=== PATIENT | female | born 1940 ===

== ENCOUNTER 2025-09-11 09:53 | Outpatient (AMB) | payer OTHER, SELFPAY ==
--- NOTE | 2025-09-11 09:56 | A.PHYSOV_ITS ---
Vital Signs 09/11/25 09:59 Height 5 ft 2 in Weight 155 lb BMI 28.3 Pulse 72 Intake Visit Reasons: Lumbar Interlaminar Epidural Injection L5-S1 Intake Note: Patient is a 85 year old female in office today for a Lumbar Interlaminar Epidural Injection L5-S1. Pick Up Required: Yes Pick Up Language: Medical Education Manager Services: Pick Up Offered & Declined Allergies dulaglutide (From Trulicity) Allergy (Unknown, Verified 09/11/25 09:55) Unknown Penicillins Allergy (Unknown, Verified 09/11/25 09:55) Unknown [facility] Medical History (Updated 09/11/25 @ 10:05 by Kuldip Pete DO) Lumbar radiculitis Surgical History History of cholecystectomy H/O: hysterectomy Social History Alcohol intake: current Alcohol intake frequency: does not drink Patient Tobacco Use Status: Never used Tobacco Current occupational status: retired Physical Exam Vital Signs: Last Vital Signs Pulse 72 09/11/25 09:59 BMI result Body Mass Index 28.3 Office Procedures Procedure Details: Procedure performed: L5-S1 lumbar epidural steroid injection Preop diagnosis: Lumbar radiculitis Postop diagnosis: The same Anesthesia: Local After informed consent was obtained patient was brought into the procedure room and placed in the prone position on the procedure table. Skin over the lumbar sacral area was prepped and draped in usual sterile manner. L5-S1 interlaminar space was visualized utilizing fluoroscopy. After skin was anesthetized with 1% lidocaine solution, 3.5 in 20 gauge Toughy needle was introduced percutaneously and advanced toward the epidural space at the indicated level. Loss of resistance technique was utilized. Needle placement was verified utilizing 3 cc of Omnipaque contrast solution. Excellent epidural spread was visualized without evidence of vascular uptake. Total volume of 8 cc containing 2 cc of 1% lidocaine, 40 mg of triamcinolone and normal saline solution were injected after negative aspiration for blood and cerebrospinal fluid. Radiation exposure was documented in the chart. Lumbar Interlaminar Epidural 20456- use with FL Gd order: Lumbar Interlaminar Epidural Steroid Injection 39051 Procedure code (CPT) selection complete Office Meds Kenalog 40 mg/mL suspension for injection Performing Provider: Kuldip ePte DO Performing Location: [facility] Administered by: Kuldip Pete DO on 09/11/25 10:06 Dose Route Admin Location Dispensed Lot Number Expiration Date [facility] [employer] 40 mg epidural 1 mL [address]-6 [employer] Total Dispensed Waste 1 mL 0 % lidocaine (PF) 10 mg/mL (1 %) injection solution Performing Provider: Kuldip Pete DO Performing Location: [facility] Administered by: Kuldip Pete DO on 09/11/25 10:06 Dose Route Admin Location Dispensed Lot Number Expiration Date [facility] [employer] 50 mg epidural 5 mL 24089-303-23 [employer]DA [employer]AR Total Dispensed Waste 5 mL 0 % Omnipaque 300 300 mg iodine/mL intravenous solution Performing Provider: Kuldip Pete DO Performing Location: [facility] Administered by: Kuldip Pete DO on 09/11/25 10:06 Dose Route Admin Location Dispensed Lot Number Expiration Date [facility] [employer] Professor 3 mL epidural 10 mL [id number] [employer] [facility] Total Dispensed Waste 10 mL 70 % Assessment & Plan Assessment & Plan (1) Lumbar radiculitis: Code(s): M54.16 - Radiculopathy, lumbar region Category: Medical Plan: Procedure Orders: Orders AMB Lumbar Interlaminar Epidural Steroid Injection Today M54.16 - Radiculopathy, lumbar region FL Gd L Spine Interlaminar Inj Today M54.16 - Radiculopathy, lumbar region Coding Level of Care Code Procedure Only Diagnoses Lumbar radiculitis M54.16 CPT Codes Lumbar Interlaminar Epidural Steroid I - 42908 - Lumbar Interlaminar Epidural: Lumbar Interlaminar Epidural Steroid Injection 55156 ([id number])
[2025-09-11 09:59] VITALS: PULSE 72; BMI 28.3
--- OUTSIDE RECORDS SUMMARY | 2025-09-11 10:56 | XMS_ITS | Patient Health Record ---
[facility] Address [address] [place] [address] Care Team Providers Care Contact Lens Blocker And Cutter Name Role Phone Lula Coronado Primary Care Provider Donald Soares Unavailable [phone] Ame Kilgore Unavailable [phone] Allergies Allergen (clinical drug ingredient) Drug/Non Drug Allergy documented on EMR Reaction Allergy Type Onset Date Status Penicillin itchy Drug Allergy Active Results Component Value Reference Range Notes HEMOGLOBIN A1C (GLYCOHEMOGLO BIN) Reviewed date:04/21/2025 10:22:30 AM Interpretation: Performing Lab: Notes/Report: HEMOGLOBIN A1C % (HH) 9.5 HEMOGLOBIN A1C (GLYCOHEMOGLO BIN) Reviewed date:01/16/2025 09:57:22 AM Interpretation: Performing Lab: Notes/Report: HEMOGLOBIN A1C % (HH) 9.5 Reason For Referral No Information Medications Medication SIG (Take, Route, Frequency, Duration) Notes Start Date End Date Status glipiZIDE 5 MG 1 tablet 30 minutes before breakfast Orally Once a day; Duration: 30 day(s) Active busPIRone HCl 10 MG 1 tablet Orally Twic e a day Active Glucosamine Chondro Complex Active Extra Depth Orthopedic Shoes , (1) Pair With (3) Pair Custom Heat Molded Multidensity Innersoles Dx: NIDDM/PVD(E11.51), Hammertoe Foot Deformity(M20.41,M20.42 ), Preulcerative Skin Lesion(s)(L85.1) Wear Daily; Duration: 365 days Active DULoxetine HCl 60 MG 1 capsule Orally On ce a day; Duration: 30 day(s) Active Loratadine 10 MG 1 tablet Orally Once a day; Duration: 30 day(s) Active Escitalopram Oxalate 10 MG 1 tablet Oral ly Once a day; Duration: 30 day(s) Active Omeprazole 20 MG 1 capsule 30 minutes before morning meal Orally Once a day; Duration: 30 day(s) Active Eucerin Active Rosuvastatin Calcium 40 MG 1 tablet Oral ly Once a day; Duration: 30 day(s) Active Gabapentin 100 MG 1 capsule Orally Onc e a day; Duration: 30 day(s) Active Ciclopirox 8 % 1 application Externally Once a day Active hydroCHLOROthiazide 12.5 MG 1 capsule in the morning Orally Once a day; Duration: 30 day(s) Active D3 Active hydrOXYzine HCl 25 MG 1 tablet at bedtim e as needed Orally Once a day; Duration: 30 day(s) Active Diclofenac Sodium 1 % as directed Externally Active Lantus SoloStar Acti ve Docusate Sodium 100 MG 1 capsule as need ed Orally Once a day; Duration: 30 day(s) Active Lisinopril 40 MG 1 tablet Orally Once a day; Duration: 30 day(s) Active GaviLAX 17 GM/SCOOP as directed Orally Active Acetaminophen Active Immunizations Vaccine Route Administration Date Status Comme nts Influenza Unknown 06/24/2025 Administered Social History Tobacco Use: Social History Observation Description Date Details (start date - stop date) Never Smoker NA - NA Alcohol Screen Question Answer Notes Did you have a drink containing alcohol in the p ast year? No Points 0 Interpretation Negative Tobacco use other than smoking: Question Answer Notes Are you an other tobacco user? No Tobacco Control (Standard) Question Answer Notes Tobacco use: Nonsmoker Additional Findings: Tobacco non-user Current no nsmoker AUDIT-C (Standard) Question Answer Notes Did you have a drink containing alcohol in the p ast year? No Points 0 Interpretation Negative Problems Problem Type SNOMED Code ICD Code Onset Dates Problem Status W/U Status Risk Notes Problem Acquired hammer toe of right foot (7341001857876 105) Other hammer toe(s) (acquired), right foot (M20.41) Active confirmed Problem Acquired hammer toe of left foot (5262071150807 103) Other hammer toe(s) (acquired), left foot (M20.42) Active confirmed Problem Type 2 diabetes mellitus with peripheral angiopathy (860943683) Type 2 diabetes mellitus with diabetic peripheral angiopathy without gangrene (E11.51) Active confirmed Q7(A), Q8(2B), Q9(1B,2C) Vital Signs Blood pressure diastolic 80 mm Hg 08/05/2025 Height 5ft 4in in 08/05/2025 Blood pressure systolic 123 mm Hg 08/05/2025 Weight 155 lbs 08/05/2025 BMI 26.6 kg/m2 08/05/2025 Procedures Procedure Date Ordered Date Performed Result Body Sit e 54938-GVAXYFM NAIL, 6 OR MORE 01/16/2025 N/A 77476-Viusgkuy Plate 01/16/2025 N/A 79677-IRAZ SKIN LESIONS, 2 TO 4 01/16/2025 N/A 83029-MYVJQRT NAIL, 6 OR MORE 04/21/2025 N/A 82021-XCHX SKIN LESIONS, 2 TO 4 04/21/2025 N/A 51179-JKSIFQX NAIL, 1-5 08/05/2025 N/A 65578-XWJU SKIN LESIONS, 2 TO 4 08/05/2025 N/A Q0974-EDSNHFZL DYSTROPHIC NAILS ANY # 08/05/2025 N/A Encounters Encounter Location Date Provider Diagnosis [address] [address] 01/16/2025 Ame Kilgore Ingrown nail L60.0 ; Tinea unguium B35.1 ; Type 2 diabetes mellitus with diabetic peripheral angiopathy without gangrene E11.51 ; Pain in right toe(s) M79.674 and Pain in left toe(s) M79.[address] [address] 04/21/2025 Ame Kilgore Tinea unguium B35.1 ; Type 2 diabetes mellitus with diabetic peripheral angiopathy without gangrene E11.51 ; Pain in right toe(s) M79.674 and Pain in left toe(s) M79.[address] [address] 08/05/2025 Donald Somers Type 2 diabetes mellitus with diabetic peripheral angiopathy without gangrene E11.51 ; Tinea unguium B35.1 ; Pain in right toe(s) M79.674 ; Pain in left toe(s) M79.675 ; Other hammer toe(s) (acquired), right foot M20.41 and Other hammer toe(s) (acquired), left foot M20.42 [facility] [place] [address] [place] [id number] 01/14/2025 Donald Somers Assessments Encounter Date Diagnosis (ICD Code) Assessment Notes Treatment Notes Treatment Clinical Notes Section Notes 01/16/2025 Tinea unguium (ICD-10 - B35.1) 01/16/2025 Ingrown nail (ICD-10 - L60.0) 04/21/2025 Tinea unguium (ICD-10 - B35.1) 04/21/2025 Type 2 diabetes mellitus with diabetic peripheral angiopathy without gangrene (ICD-10 - E11.51) 08/05/2025 Tinea unguium (ICD-10 - B35.1) 08/05/2025 Type 2 diabetes mellitus with diabetic peripheral angiopathy without gangrene (ICD-10 - E11.51) Q7(A), Q8(2B), Q9(1B,2C) 08/05/2025 Pain in right toe(s) (ICD-10 - M79.674) 01/16/2025 Type 2 diabetes mellitus with diabetic peripheral angiopathy without gangrene (ICD-10 - E11.51) 04/21/2025 Pain in right toe(s) (ICD-10 - M79.674) 01/16/2025 Pain in right toe(s) (ICD-10 - M79.674) 04/21/2025 Pain in left toe(s) (ICD-10 - M79.675) 08/05/2025 Pain in left toe(s) (ICD-10 - M79.675) 01/16/2025 Pain in left toe(s) (ICD-10 - M79.675) 08/05/2025 Other hammer toe(s) (acquired), right foot (ICD-10 - M20.41) Patient Educated with: DIABETIC FOOT CARE INSTRUCTIONS.p df (DIABETIC FOOT CARE INSTRUCTIONS.p df) 08/05/2025 Other hammer toe(s) (acquired), left foot (ICD-10 - M20.42) Plan Of Treatment Pending Test Test Name Order Date 26806-OSZEMXH NAIL, 6 OR MORE 01/16/2025 55290-DCFQVOI NAIL, 6 OR MORE 04/21/2025 43810-TVQUMZJ NAIL, 1-5 06/04/2024 56015-JULWDPV NAIL, 1-5 08/05/2025 61988-Tjwjqyxd Plate 06/04/2024 35113-Exdriqny Plate 01/16/2025 80119-ZBKI SKIN LESIONS, 2 TO 4 01/17/20 01465-DNOW SKIN LESIONS, 2 TO 4 04/21/20 77462-XWQR SKIN LESIONS, 2 TO 4 06/04/20 36232-GTEM SKIN LESIONS, 2 TO 4 08/05/20 R5799-WMWQHOWD DYSTROPHIC NAILS ANY # F1465-SNNOVMWW DYSTROPHIC NAILS ANY # Next Appt Details Provider Name:Donald Somers , 11/11/2025 11:30:00 AM, [address] [facility], [facility] [address], [place], [address], Insurance Providers Payer Name Payer Address Payer Phone Subscriber Number Group Number Insured Name Patient Relationship to Insured Coverage Start Date Coverage End Date [facility] [employer] Claims [address] [place] [address] [id number] Viky Man Self - patient is the insured Medical (General) History Medical History History ICD Code Diabetic Arthritis Back,Hip,and Knee pain Depression High Blood Pressure Hypercholesterolemia Reflux
--- OUTSIDE RECORDS SUMMARY | 2025-09-11 10:56 | XMS_ITS | Clinical Summary ---
Author Organization [facility] [address] [facility] Address [address] [place] [address] Phone Care Team Providers Care Outreach Manager Name Role Phone Lula Velasquez MD Primary Care Prov ider Allergies Active Allergy Reactions Criticality Noted Date Comments Dulaglutide 10/24/2021 nausea Penicillins 06/28/2017 sob Medications acetaminophen (TYLENOL 8 HOUR) 650 mg 8 hr tablet Take 650 mg by mouth every 8 hours as needed. Active emollient combination no.110 lotion Emollient (EUCERIN) lotion Apply topically as needed. Active busPIRone (BUSPAR) 10 mg tablet TAKE 1 TABLET BY MOUTH TWICE DAILY 05/26/20 21 Active ciclopirox (PENLAC) 8 % solution Apply daily to nails clean medication residue off of nail plate every 3 days with rubbing alcohol 08/24/20 21 Active clotrimazole (LOTRIMIN) 1 % cream Apply to skin and toenails daily for 12 weeks 04/30/20 23 Active magnesium citrate solution TAKE 150 ML (ORAL) DAILY ( NEEDED FOR CONSTIPATION) FOR 3 DAYS 07/24/20 23 Active diclofenac (VOLTAREN) 1 % topical gel Apply 4 g topically 2 times daily. 01/26/20 23 Active docusate sodium (COLACE) 100 mg capsule Take 1 Capsule by mouth 2 times daily. 02/27/20 23 Active DULoxetine (CYMBALTA) [address] capsule Take 60 mg by mouth daily. 05/08/20 22 Active escitalopram (LEXAPRO) 10 mg tablet 06/29/20 18 Active glucosamine-paola droitin 500-400 mg capsule Take by mouth. Take 2-3 times a day for arthritis Active hydrOXYzine HCL (ATARAX) 25 mg tablet TAKE 1 TABLET BY MOUTH THREE TIMES DAILY NEEDED FOR ANXIETY 05/26/20 21 Active loratadine (CLARITIN) 10 mg tablet Take 1 Tablet by mouth daily. 01/24/20 24 Active mupirocin (BACTROBAN) 2 % ointment 06/16/20 23 Active omeprazole (PriLOSEC) [address] capsule Take 1 Capsule by mouth daily. 01/24/20 24 Active phenazopyridine (PYRIDIUM) 100 mg tablet Take 1 Tablet by mouth 3 times daily as needed for Pain. 09/03/20 23 Active silver sulfADIAZINE (SILVADENE, SSD) 1 % cream Apply topically to nail bed daily 06/12/20 23 Active zolpidem (AMBIEN) 10 mg tablet TAKE 1 TABLET BY MOUTH EVERYDAY AT BEDTIME 12/05/19 23 Active gabapentin (NEURONTIN) 300 mg capsule Take 2 capsules (600 mg total) by mouth 2 (two) times a day. 10/06/19 25 Active FreeStyle Lancets 28 gauge lancetsIndicatio ns:Type 2 diabetes mellitus with diabetic chronic kidney disease ([facility] V24, [facility] V28) USE 3 TIMES DAILY 200 each 5 02/18/20 25 Active BD Ultra-Fine Mini Pen Needle 31 gauge x 3/16 needle INJECT 1 STICK INTO THE SKIN DAILY. E11.9 100 each 2 05/14/20 25 Active polyethylene glycol (PEG) 17 gram/dose oral powder DISSOLVE 17 GRAMS IN 8 OZ OF FLUID LIQUID DRINK DAILY DIRECTED 238 g 3 06/18/20 25 Active blood sugar diagnostic (FreeStyle Lite Strips) test stripIndications :Type 2 diabetes mellitus with stage 3a chronic kidney disease, with long-term current use of insulin ([facility] V24, [facility] V28) USE TO TEST BLOOD SUGAR THREE TIMES DAILY 100 strip 5 06/29/20 25 Active hydroCHLOROthiaz shaheen (MICROZIDE) 12.5 mg capsule TOME 1 CAPSULA POR VIA ORAL TODOS [place] 90 capsule 08/03/20 25 Active rosuvastatin (CRESTOR) 40 mg tablet TOME 1 TABLETA POR VIA ORAL TODOS [place] 90 tablet 08/03/20 25 Active lisinopril (PRINIVIL,ZESTRI L) 40 mg tablet TOME 1 TABLETA POR VIA ORAL TODOS [place] 90 tablet 08/03/20 25 Active glipiZIDE (GLUCOTROL) 5 mg tablet Take 1 tablet (5 mg total) by mouth 2 (two) times a day before meals. 90 tablet 1 08/04/20 25 Active semaglutide (Rybelsus) 14 mg tabletIndication s:Type 2 diabetes mellitus with chronic kidney disease, with long-term current use of insulin, unspecified CKD stage ([facility] V24, [facility] V28) Take 1 tablet (14 mg total) by mouth 1 (one) time each day before breakfast. Take with 4 ounces (1/2 cup) of water on empty stomach, 30 min prior to other medication or food. 30 tablet 5 08/04/20 25 Active Lantus Solostar U-100 Insulin 100 unit/mL (3 mL) injection penIndications:T ype 2 diabetes mellitus with chronic kidney disease, with long-term current use of insulin, unspecified CKD stage ([facility] V24, [facility] V28) ADMINISTER 28 UNITS UNDER THE SKIN AT BEDTIME 30 mL 1 08/04/20 25 Active blood-glucose meter kit Use to test blood sugar 3 times daily DX CODE: E11.29 1 each 08/04/20 25 Active Vitamin D3 25 mcg (1,000 unit) capsule TAKE 1 CAPSULE (1,000 UNITS TOTAL) BY MOUTH ONE TIME EACH DAY. 90 capsule 1 08/27/20 25 Active cholecalciferol (Vitamin D3) 25 mcg (1,000 unit) capsule Take 1 capsule (1,000 Units total) by mouth 1 (one) time each day. 90 capsule 1 02/26/20 25 025 Discontinued Active Problems Problem Noted Date Diagnosed Date Angina pectoris 08/08/2024 Cataract 08/08/2024 Chronic pain 08/08/2024 Contusion of knee 08/08/2024 Diabetes mellitus, type 2 08/08/2024 Assessment & Plan (12/05/2024 12:22 PM EDT): Dyslipidemia 08/08/2024 Low back pain 08/08/2024 Spondylosis of cervical spine 08/08/2024 Overview (08/08/2024): moderate C5-6 and C6-7 degenerative disk disease Straining with stools 08/08/2024 Sacroiliitis 06/01/2023 Overview (08/06/2024): Last Assessment & Plan: Ms. Man describes ongoing right SI joint with radiation down the lateral aspect of the right leg. Provocative tests seem to reproduce her right-sided low back and leg symptoms. She did not have any relief with physical therapy. She would like to go for an SI joint injection. We will arrange for this to get scheduled for her. Spondylolisthesis at L4-L5 level 06/01/2023 Overview (08/06/2024): Last Assessment & Plan: Ms. Man has low back pain on the right side with radiation to the right buttock as well as pain in the right lateral calf. She has a little bit of anterolisthesis of L4 on L5 seen on the MRI from [facility] in July of 2022 as well as the more recent x-rays from [facility] on May 29, 2023. Going to order some x-rays with flexion and extension views to make sure there is no instability there. If the x-rays do not reveal any instability, she will begin some physical therapy. She can follow-up with us at the conclusion of therapy for repeat evaluation. Osteoarthritis of glenohumeral joint, left 08/16 Positive MATT (antinuclear antibody) 02/10/2021 Overview (08/06/2024): Negative antidouble-stranded DNA and anti-HUBERT antibodies Internal derangement of knee 07/01/2020 Lumbar radiculitis 07/01/2020 Primary osteoarthritis of both knees 07/01/2020 CKD (chronic kidney disease) stage 3, GFR 30-59 ml/min 07/21/2019 DM (diabetes mellitus), type 2 with renal compli cations 07/21/2019 Osteopenia 04/08/2019 Insomnia 07/05/2017 Osteoarthritis 07/05/2017 Overview (08/06/2024): cervical Type 2 diabetes mellitus with cataract 7 Assessment & Plan (12/05/2024 12:22 PM EDT): Anxiety 06/28/2017 Cataracts, bilateral 06/28/2017 Depression 06/28/2017 Overview (08/06/2024): [address] Diabetic neuropathy 06/28/2017 Overview (08/06/2024): Feet, fingers Hyperlipidemia 06/28/2017 Assessment & Plan (06/10/2025 12:15 PM EDT): Given the patients cardiac risk profile, the patient requires an LDL cholesterol of less than 70. I have instructed the patient on the principles of a low cholesterol diet and the importance of regular exercise. Continue rosuvastatin 40 mg a day. We will check a cholesterol profile and liver function tests on the next visit. Assessment & Plan (12/05/2024 12:22 PM EDT): Hypertension 06/28/2017 Assessment & Plan (06/10/2025 12:15 PM EDT): The patient's antihypertensive regimen is based on their underlying medical issues. At the time of this visit, the blood pressure is well controlled on lisinopril, hctz. The patient is instructed to follow a low sodium diet and to follow up in 3 months. 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 Due for repeat A1C. Patient will continue with yearly Podiatric and Ophthomologic evaluations. Will continue Angiotensin Converting Enzyme Inhibitor for renal protection, glipizide 5mg day, glargine 28 units at night, semaglutide 14 mg as recommeded by Endo. Patient will follow up with us in 3 months. Encouraged to follow a low-carb diet, keep the appointments with endocrinology. Orders: Ambulatory referral to Gastroenterology; Future Comprehensive metabolic panel; Future Hemoglobin A1c; Future Lipid panel with reflex to direct LDL; Future Microalbumin creatinine urine ratio; Future Assessment & Plan (12/05/2024 12:22 PM EDT): Encounters Date Type Department Care Team Description 08/04/2025 10:30 AM EST Office Visit Endocrinology - [address] [phone] Eneida Trevino PA Type 2 diabetes mellitus with chronic kidney disease, with long-term current use of insulin, unspecified CKD stage (CMS/HCC V24, CMS/HCC V28) (Primary Dx); Stage 3 chronic kidney disease, unspecified whether stage 3a or 3b CKD (CMS/HCC V24, CMS/HCC V28); Hyperlipidemia, unspecified hyperlipidemia type 07/22/2025 Results Follow-Up Endocrinology - [address] [phone] Eneida Trevino PA 07/13/2025 Results Follow-Up Adult Medicine [address] [phone] Lula Vivar MD 06/25/2025 Telephone Gastroenterology [facility] [address] [facility] [address] [facility] [address] [place] [id number] Anahi Banda NP 06/24/2025 Telephone Adult Medicine [address] [phone] Lula Vivar MD 06/18/2025 2:45 PM EDT Office Visit Nephrology - [address] [phone] Ortiz Guevara MD Stage 3 chronic kidney disease, unspecified whether stage 3a or 3b CKD (CMS/HCC V24, CMS/HCC V28) (Primary Dx); Hypertension, unspecified type; Type 2 diabetes mellitus with cataract ([facility]24, [facility] V28) from Last 3 Months Immunizations Immunization Administration Dates Next Due Influenza trivalent, 0.5mL ( Fluad) 65yo and older 06/10/2025,07/08/2024,06/10/2020,06/16 Influenza trivalent, 0.5mL, preservative free (Fluarix; FluLaval; Fluzone) ages 6mo and older (Afluria) 3 years and older 06/29/2021,06/04/2018,06/16/2014 Influenza, Unspecified 07/26/2021,06/08/2019 Pneumococcal conjugate 13 va lent (Prevnar 13, PCV13) 2mo and older 06/16/2017,09/24/2013 Pneumococcal polysaccharide 23 valent (Pneumovax 23) 2yo and older 09/24/2012 Td Tetanus diptheria (Tdvax) 7yo and older 03/05/2019 Tdap Tetanus diptheria acell ular pertussis (Boostrix; Adacel) 7yo and older 03/29/2023 Zoster Live 06/16/2014,09/24/2013 Surgical History Surgery Date Site/Laterality Comments CHOLECYSTECTOMY PROCEDURE: HISTORICAL CHOLECYSTECTOMY PARTIAL HYSTERECTOMY PROCEDURE: [place] SUPRACERVICAL ABDL HYSTER W/WO RMVL TUBE OVARY COLONOSCOPY 02/02/2015 PROCEDURE: OUTSIDE COLONOSCOPY; COMMENT: mild sigmoid diverticulosis; tortuous colon Medical History Medical History Date Comments Type 2 diabetes mellitus wit h cataract ([facility], [facility] V28) 07/05/2017 DX:Type 2 diabetes mellitus with cataract (HCC) Diabetes mellitus type 2 wit h neurological manifestations ([facility] V24, [facility] V28) 06/28/2017 DX:Diabetes mellitus type 2 with neurological manifestations (HCC) Osteoarthritis 07/05/2017 DX:Osteoarthriti s Cataracts, bilateral 06/28/2017 DX:Cataract s, bilateral Depression 06/28/2017 DX:Depression Diabetic neuropathy ([facility] V[facility], [facility] V28) 06/28/2017 DX:Diabetic neuropathy ([facility]) Hyperlipidemia 06/28/2017 DX:Hyperlipidemi a Hypertension 06/28/2017 DX:Hypertension Anxiety 06/28/2017 DX:Anxiety Insomnia 07/05/2017 DX:Insomnia Type 2 diabetes mellitus wit h neurological manifestations, uncontrolled 06/28/2017 DX:Type 2 diabetes mellitus with neurological manifestations, uncontrolled Esophageal reflux DX:Esophageal reflux Family History Medical History Relation Name Comments Heart attack Brother 1 CABG Diabetes Brother 2 HTN, Hyperlipid emia- multiple siblings Pancreatic cancer Brother 3 Arthritis Sister Diabetes Sister HTN, Hyperlipid emia- multiple siblings Colon cancer Son Breast cancer Neg Hx Relation Name Status Comments Brother 1 Brother 2 Brother 3 Sister Son Social History Tobacco Use Types Packs/Day Years Used Date Smoking Tobacco: Never Smokeless Tobacco: Never Tobacco Cessation:Counseling Given: Not Answered Alcohol Use Standard Drinks/Week Comments No 0 (1 standard drink = 0.6 oz pur e alcohol) Comments No Sex and Gender Information Value Date Recorded Sex Assigned at Female 09/08/2024 10:10 AM EST Legal Sex Female 3:33 PM EST Gender Identity Female 09/08/2024 10:10 AM EST Sexual Orientation Choose not to disclose 2023 10:10 AM EST Obstetrics History Para Term AB IAB SAB Ectopic Multiple Livin g Live Births 5 5 5 5 Date Outcome GA Total Labor Labor/2nd/3rd Weight Sex Type Anes PTL Shu A1 A5 Name Clin Term Term Term Term Term Last Filed Vital Signs Vital Sign Reading Time Taken Comments Blood Pressure 139/69 08/04/2025 9:51 AM EST Pulse 76 08/04/2025 9:51 AM EST Temperature 35.9 C (96.6 F) 06/10/2025 9:48 AM EDT Respiratory Rate 15 08/04/2025 9:51 AM EST Oxygen Saturation 97% 06/10/2025 9:48 AM EDT Inhaled Oxygen Concentration - - Weight 70.3 kg (155 lb) 08/04/2025 9:51 AM EST Height 162.6 cm (5' 4 ) 08/04/2025 9:51 AM EST Body Mass Index 26.61 08/04/2025 9:51 AM EST Plan of Treatment Upcoming Encounters Date Type Department Care Team (Late st Contact Info) Description 11/11/2025 9:40 AM EST Consult Gastroenterology - [address] [facility] [address] [place] [phone] Anahi Banda, SUJEY [address] [facility] [address] [place] [address] 11/18/2025 9:30 AM EST Office Visit Adult Medicine East - [address] [phone] Maria Guadalupe Ribera PA [address] [place], [place] 12/07/2025 10:45 AM EDT Office Visit Endocrinology - [address] [phone] Eneida Trevino PA [address] [place], [place] 07/22/2026 1:15 PM EDT Office Visit Nephrology - [address] [phone] Ortiz Guevara MD [address] [phone] Health Maintenance Due Date Last Done Comments Drug Screen 1940 Non-Opioid Controlled Substance Agreement 1940 Zoster Vaccines (1 of 2) 08/11/2014 06/16/2014, 09/2013 RSV Immunization Adult Patients (1 - 1-dose 75+ series) 2016 COVID-19 Vaccine (3 - Moderna risk series) 02/23/2021 01/26/2021, 12/29/2020 Medicare Annual Wellness Visit 09/02/2022 Social Influencers of Health Screening 09/02/2022 Falls Risk Assessment 12/05/2025 12/05/2024 Diabetes: Blood Sugar Control Test (HGBA1C) 01/11/2026 07/13/2025, 06/11/2025, 01/12/2025, Additional history exists Diabetes: Annual Retina Eye Exam 04/28/2026 04/28/2025, 04/25/2024 Diabetes: Annual Foot Exam 06/10/2026 06/10/2025, Diabetes: Annual Urine Albumin-Creatinine Ratio (uACR) 06/11/2026 06/11/2025, 01/24/2024 Diabetes: Annual GFR (Glomerular Filtration Rate) 06/11/2026 06/11/2025, 01/12/2025, 11/20/2024, Additional history exists Hypertension/CHF/CAD Annual BMP Blood Test 06/11/2026 06/11/2025, 01/12/2025, 11/20/2024, Additional history exists Osteoporosis Screening (Bone Density Screening) 04/07/2029 04/07/2019 Cholesterol Screening (Lipid Panel) 07/13/2030 07/13/2025, 06/11/2025, 12/29/2024, Additional history exists DTaP,Tdap,and Td Vaccines (3 - Td or Tdap) 03/29/2033 03/29/2023, 03/05/2019 Pneumococcal Vaccine: 50+ Years Completed 06/16/2017, 07/16/2014, 09/24/2013, Additional history exists Depression Screening Completed 12/05/2024 Influenza Vaccine Completed 06/10/2025, , 07/26/2021, Additional history exists HIB Vaccines Aged Out No longer eligi ble based on patient's age to complete this topic HPV Vaccines Aged Out No longer eligi ble based on patient's age to complete this topic Hepatitis A Vaccines Aged Out No long er eligible based on patient's age to complete this topic Hepatitis B Vaccines Aged Out No long er eligible based on patient's age to complete this topic IPV Vaccines Aged Out No longer eligi ble based on patient's age to complete this topic MMR Vaccines Aged Out No longer eligi ble based on patient's age to complete this topic Meningococcal ACWY Vaccine Aged Out N o longer eligible based on patient's age to complete this topic Meningococcal B Vaccine Aged Out No l onger eligible based on patient's age to complete this topic RSV Immunization Patients Under 20 months Aged Out No longer eligible based on patient's age to complete this topic Varicella Vaccines Aged Out No longer eligible based on patient's age to complete this topic Procedures Procedure Name Priority Date/Time Associated Diagnosis Comments HEMOGLOBIN A1C Routine 07/13/2025 10:21 AM EDT Type 2 diabetes mellitus with chronic kidney disease, with long-term current use of insulin, unspecified CKD stage ([facility] V24, [facility] V28) LIPID PANEL WITH REFLEX TO DIRECT LDL Routine 07/13/2025 10:21 AM EDT Type 2 diabetes mellitus with chronic kidney disease, with long-term current use of insulin, unspecified CKD stage ([facility] V24, [facility] V28) MICROALBUMIN CREATININE URINE RATIO Routine 06/11/2025 11:10 AM EDT Type 2 diabetes mellitus with neurological manifestations ([facility] V24, [facility] V28) COMPREHENSIVE METABOLIC PANEL Routine 06/11/2025 11:10 AM EDT Type 2 diabetes mellitus with neurological manifestations ([facility] V24, [facility] V28) DIABETES EYE EXAM Routine 04/25/2024 DIABETES FOOT EXAM Routine 01/24/2024 DXA BONE DENSITY STUDY 1+ SITS AXIAL SKEL Routine 04/07/2019 11:28 AM EDT Unspecified menopausal and perimenopausal disorder from Last 3 Months or Most Recently Relevant to Health Maintenance Results * (ABNORMAL) Lipid panel with reflex to direct LDL (07/13/2025 10:21 AM EDT) Cholesterol 148 0 - 200 mg/dL LAB CHEMISTRY METHOD 07/13/2025 1:15 PM EDT [facility] Triglycerides 261(H) 0 - 150 mg/dL LAB CHEMISTRY METHOD 07/13/2025 1:15 PM EDT [facility] HDL 37(L) >=40 mg/dL LAB CHEMISTRY METHOD 07/13/2025 1:15 PM EDT [facility] LDL Calculated 59 0 - 100 mg/dL LAB CHEMISTRY METHOD 07/13/2025 1:15 PM T [facility] Comment:Estimated LDL Calcul ated using equation: Total cholesterol - HDL cholesterol - (Triglycerides/5) VLDL Cholesterol Erich 52.2 mg/dL LAB CHEMISTRY METHOD 07/13/2025 1:15 PM EDT [facility] Non HDL Chol. (LDL+VLDL) 111 <145 mg/dL LAB CHEMISTRY METHOD 07/13/2025 1:15 PM EDT [facility] Chol/HDL Ratio 4.0 0.0 - 4.4 LAB CHEMISTRY METHOD 07/13/2025 1:15 PM EDT [facility] Blood Venous blood specimen / Unknown Venipuncture / Unknown 07/13/2025 10:21 AM EDT 07/13/2025 10:21 AM EDT us Lula Velasquez MD LAB BLOOD ORDERABL ES Final Result Performing Organization Address [facility]/ZIP Co de Phone Number [facility] [address] [place] [address], [place] [phone] * (ABNORMAL) Hemoglobin A1c (07/13/2025 10:21 AM EDT) Hemoglobin A1C 8.6(H) <6.5 % LAB CHEMISTRY METHOD 07/13/2025 1:50 PM EDT [facility] Mean Bld Glu Estim. 200 mg/dL LAB CHEMISTRY METHOD 07/13/2025 1:50 PM EDT [facility] Blood Venous blood specimen / Unknown Venipuncture / Unknown 07/13/2025 10:21 AM EDT 07/13/2025 10:21 AM EDT us Eneida RUBI LAB BLOOD ORDERABLES Final Resul t Performing Organization Address City/[facility]/ZIP Co de Phone Number [facility] [address] [place] [address], [place] [phone] * Microalbumin creatinine urine ratio (06/11/2025 11:10 AM EDT) Creatinine, Urine 137.0 mg/dL LAB CHEMISTRY METHOD 06/11/2025 1:19 PM EDT [facility] Microalb, Ur 23.5 0.0 - 29.0 mg/L LAB CHEMISTRY METHOD 06/11/2025 1:19 PM EDT [facility] Microalb/Creat Ratio 17 <30 mg/g creat LAB CHEMISTRY METHOD 06/11/2025 1:19 PM T [facility] Urine Urine specimen obtained by clean catch procedure / Unknown Non-blood Collection / Unknown 06/11/2025 11:10 AM EDT 06/11/2025 11:10 AM EDT us Lula Velasquez MD LAB URINE ORDERABL ES Final Result [facility] [address] [place] [address], * (ABNORMAL) Comprehensive metabolic panel (06/11/2025 11:10 AM EDT) Sodium 137 133 - 145 mmol/L LAB CHEMISTRY METHOD 06/11/2025 3:13 PM [facility] Potassium 4.6 3.5 - 5.5 mmol/L LAB CHEMISTRY METHOD 06/11/2025 3:13 PM [facility] Chloride 102 96 - 110 mmol/L LAB CHEMISTRY METHOD 06/11/2025 3:13 PM [facility] CO2 28 21 - 32 mmol/L LAB CHEMISTRY METHOD 06/11/2025 3:13 PM [facility] Anion Gap 7 3 - 11 LAB CHEMISTRY METHOD 06/11/2025 3:13 PM [facility] Glucose 177(H) 70 - 100 mg/dL LAB CHEMISTRY METHOD 06/11/2025 3:13 PM [facility] BUN 21 5 - 25 mg/dL LAB CHEMISTRY METHOD 06/11/2025 3:13 PM [facility] Creatinine 1.28(H) 0.50 - 1.10 mg/dL LAB CHEMISTRY METHOD 06/11/2025 3:13 PM [facility] eGFR 41(L) >=60 mL/min/1. 73m2 LAB CHEMISTRY METHOD 06/11/2025 3:13 PM [facility] Comment:Calculation based on the Chronic Kidney Disease Epidemiology Collaboration (CKD-EPI) equation refit without adjustment for race. BUN/Creatinine Ratio 16.4 LAB CHEMISTRY METHOD 06/11/2025 3:13 PM [facility] Calcium 9.7 8.5 - 10.5 mg/dL LAB CHEMISTRY METHOD 06/11/2025 3:13 PM [facility] AST (SGOT) 20 10 - 42 unit/L LAB CHEMISTRY METHOD 06/11/2025 3:13 PM [facility] ALT (SGPT) 30 10 - 60 unit/L LAB CHEMISTRY METHOD 06/11/2025 3:13 PM [facility] Alkaline Phosphatase 109 42 - 121 unit/L LAB CHEMISTRY METHOD 06/11/2025 3:13 PM [facility] Total Protein 7.1 6.0 - 8.0 g/dL LAB CHEMISTRY METHOD 06/11/2025 3:13 PM [facility] Albumin 3.7 3.2 - 5.0 g/dL LAB CHEMISTRY METHOD 06/11/2025 3:13 PM [facility] Total Bilirubin 0.3 0.0 - 1.4 mg/dL LAB CHEMISTRY METHOD 06/11/2025 3:13 PM [facility] Blood Venous blood specimen / Unknown Venipuncture / Unknown 06/11/2025 11:10 AM EDT 06/11/2025 11:10 AM EDT Lula Velasquez MD LAB BLOOD ORDERABL ES Final Result [facility] [address] [place] [address], * Diabetes Eye Exam (04/25/2024) [facility] Diabetes: Annual Retina Eye Exam Abstracted Historical Provider MD HEALTH MAINTENANCE Final Result * Diabetes Foot Exam (01/24/2024) [facility] Diabetes: Annual Foot Exam Abstracted Historical Provider MD HEALTH MAINTENANCE Final Result * DXA BONE DENSITY STUDY 1+ SITS AXIAL SKEL (04/07/2019 11:28 AM EDT) Anatomical Region Laterality Modality Bone Densitometr y 03/05/2019 10:2 1 AM EDT Narrative 04/07/2019 12:39 PM EDT BONE DENSITY Lumbar Spine T-score is -1.2 (SD relative to 20-29 y/o adult) Z-score is +1.4 (SD relative to age matched peers) This is consistent with osteopenia by criteria defined by the WHO. Left Hip T-score is -1.6 Z-score is +0.4 This is consistent with osteopenia by criteria defined by the WHO. Impression: Based on the World Health Organization criteria, Viky Man should be classified as having osteopenia. This patient has a 7.4% risk of major osteoporotic fracture and a 1.7% risk of hip fracture over the next 10 years. (World Health Organization Fracture Risk Assessment) [facility] Department of Internal Medicine recommends using National Osteoporosis Foundation (NOF) guidelines in treatment decisions related to osteoporosis. NOF guidelines suggest considering treatment for postmenopausal women and men aged 50 or older presenting with the following: History of hip or vertebral fracture. T-score less than or equal to -2.5 (DXA) at the femoral neck, total hip, or spine, after appropriate evaluation to exclude secondary causes. Low bone mass (T-score between -1.0 and -2.5 at the femoral neck or spine) AND a 10-year probability of a hip fracture greater than or equal to 3% OR a 10-year probability of a major osteoporosis-related fracture greater than or equal to 20% based on the [place]-adapted WHO algorithm Please note that all treatment decisions require clinical judgment and consideration of individual patient factors, including patient preferences, co-morbidities, previous drug use, risk factors not captured in the FRAX model (e.g., frailty, falls, vitamin D deficiency, increased bone turnover, interval significant decline in bone density) and possible under- or over-estimation of fracture risk by FRAX. Procedure Note Natalia Medrano MD - 09/12/2022 BONE DENSITY Lumbar Spine T-score is -1.2 (SD relative to 20-29 y/o adult) Z-score is +1.4 (SD relative to age matched peers) This is consistent with osteopenia by criteria defined by the WHO. Left Hip T-score is -1.6 Z-score is +0.4 This is consistent with osteopenia by criteria defined by the WHO. Impression: Based on the World Health Organization criteria, Viky Man should beclassified as having osteopenia. This patient has a 7.4% risk of majorosteoporotic fracture and a 1.7% risk of hip fracture over the next 10years. (World Health Organization Fracture Risk Assessment) [facility] Department of Internal Medicine recommendsusing National Osteoporosis Foundation (NOF) guidelines in treatmentdecisions related to osteoporosis. NOF guidelines suggest consideringtreatment for postmenopausal women and men aged 50 or older presentingwith the following: History of hip or vertebral fracture. T-score less than or equal to -2.5 (DXA) at the femoral neck, total hip,or spine, after appropriate evaluation to exclude secondary causes. Low bone mass (T-score between -1.0 and -2.5 at the femoral neck or spine)AND a 10-year probability of a hip fracture greater than or equal to 3% ORa 10-year probability of a major osteoporosis-related fracture greaterthan or equal to 20% based on the [place]-adapted WHO algorithm Please note that all treatment decisions require clinical judgment andconsideration of individual patient factors, including patientpreferences, co-morbidities, previous drug use, risk factors not capturedin the FRAX model (e.g., frailty, falls, vitamin D deficiency, increasedbone turnover, interval significant decline in bone density) and possibleunder- or over-estimation of fracture risk by FRAX. Melissa RUBI IMG DXA PROCEDURES Final Result from Last 3 Months or Most Recently Relevant to Health Maintenance Insurance [employer] MEDICARE Member Subscriber Plan / Payer (Ef fective 2019-Present) Name:Viky Man Relation to Subscriber:Self Name:Viky Man Payer ID:[id number] Group ID:[id number] Type:Not on file Address: [place] [address] [address] [id number] Care Teams Outreach Manager Relationship Specialty Start Date End Date Lula Velasquez MD [address] [place] [phone] PCP - General Internal Medicine 12/05/24
--- OUTSIDE RECORDS SUMMARY | 2025-09-11 10:56 | XMS_ITS | Encounter Summary ---
Author Organization [facility] Address [address] [place] [address] Care Team Providers Care Drug Abuse Worker Name Role Phone Lula Velasquez MD Primary Care Prov ider Encounter Details Date Type Department Care Team (Late Contact Info) Description 07/22/2025 Results Follow-Up [facility] [address] [place] [phone] Eneida Trevino PA [address] [place] [address] Social History Tobacco Use Types Packs/Day Years Used Date Smoking Tobacco: Never Smokeless Tobacco: Never Alcohol Use Standard Drinks/Week Comments No 0 (1 standard drink = 0.6 oz pur e alcohol) Comments No Sex and Gender Information Value Date Recorded Sex Assigned at Female 09/08/2024 10:10 AM EST Legal Sex Female 3:33 PM EST Gender Identity Female 09/08/2024 10:10 AM EST Sexual Orientation Choose not to disclose 2023 10:10 AM EST documented as of this encounter Plan of Treatment Upcoming Encounters Date Type Department Care Team (Late st Contact Info) Description 11/11/2025 9:40 AM EST Consult Gastroenterology - [address] [facility] [address] [place] [phone] Anahi Banda NP 299 [facility] [address] [place] [address] 11/18/2025 9:30 AM EST Office Visit [facility] - [address] [phone] Maria Guadalupe Ribera PA [address] [place] [address] 12/07/2025 10:45 AM EDT Office Visit Endocrinology - [address] [phone] Eneida Trevino PA [address] [place] [address] 07/22/2026 1:15 PM EDT Office Visit Nephrology - [address] [phone] Ortiz Guevara MD [address] [place] [phone] documented as of this encounter Visit Diagnoses Not on filedocumented in this encounter Additional Health Concerns Assessment Noted Time PHQ-9 Depression Total Score: 1 12/06/19 12:05 PM EDT documented as of this encounter Care Teams Drug Abuse Worker Relationship Specialty Start Date End Date Lula Velasquez MD [address] [place] [address] PCP - General Internal Medicine 12/05/24 documented as of this encounter
--- OUTSIDE RECORDS SUMMARY | 2025-09-11 10:56 | XMS_ITS | Encounter Summary ---
Author Organization [facility] Address [address] [place] [address] Care Team Providers Care Community Relations Manager Name Role Phone Lula Velasquez MD Primary Care Prov ider Encounter Details Date Type Department Care Team (Late Contact Info) Description 07/13/2025 Results Follow-Up [address] [phone] Lula Velasquez MD [address] [place] [address] Social History Tobacco Use Types Packs/Day Years [...] EST Consult Gastroenterology - [address] [phone] Anahi Banda NP 299 [facility] [address] [place] [address] 11/18/2025 9:30 AM EST Office Visit [facility] - [address] [phone] Maria Guadalupe Ribera PA [address] [place] [address] 12/07/2025 10:45 AM EDT Office Visit Endocrinology - [address] [phone] Eneida Trevino PA [address] [place], [place] 07/22/2026 1:15 PM EDT Office Visit Nephrology - [address] [phone] [place] [address] [place] [phone] documented as of this encounter Visit Diagnoses Not on filedocumented in this encounter Additional Health Concerns Assessment Noted Time PHQ-9 Depression Total Score: 1 12/06/19 12:05 PM EDT documented as of this encounter Care Teams Community Relations Manager Relationship Specialty Start Date End Date Lula Velasquez MD [address] [place] [address] PCP - General Internal Medicine 12/05/24 documented as of this encounter
== END 2025-09-11 10:24 | disposition home or self-care (01) ==
LOC: HO.HPHYS 09:53
PROVIDERS: PCP Internal Medicine; Visit Provider Physical Medicine & Rehabilitation
DX: M54.16 Radiculopathy, lumbar region (principal)
CPT/HCPCS: 62323

== ENCOUNTER 2025-09-11 09:53 | Outpatient (REF) | payer OTHER, SELFPAY | END 2025-09-11 09:54 | disposition home or self-care (01) | LOC: HO.HPHYSR 09:53 | PROVIDERS: PCP Internal Medicine; Visit Provider Physical Medicine & Rehabilitation | DX: M54.16 Radiculopathy, lumbar region (principal) | CPT/HCPCS: 62323; J2003; J3301; Q9967 ==